=== PATIENT | female | born 1985 | race Two or more races ===

== ENCOUNTER 2023-04-06 19:52 | Emergency (ER) | payer OTHER ==
[~2023-04-06] VITALS: Ht 162.6 cm; Wt 84.1 kg
[2023-04-06 20:29] VITALS: BP 135/87
[2023-04-06 21:15] LABS: Basophils # (auto) 0.2 10 ^3/uL (0-0.2); Basophils % (auto) 1.4 % (0.0-2.0); Eosinophils # (auto) 0.1 10 ^3/uL (0-0.8); Hematocrit 44.2 % (36.0-46.0); Hemoglobin 15.1 g/dL (12.2-16.2); Lymphocytes # (auto) 2.5 10 ^3/uL (0.4-5.4); Lymphocytes % (auto) 19.4 % (10.0-50.0); Mean Corpuscular Hemoglobin 29.3 pg (28.0-32.0); Mean Corpuscular Hgb Conc. 34.1 g/dL (32.0-36.0); Mean Corpuscular Volume 85.8 fL (80.0-100.0); Monocytes % (auto) 7.3 % (0.0-12.0); Neutrophils # (auto) 9.3 10 ^3/uL (1.6-8.6); Neutrophils % (auto) 70.9 % (37.0-80.0); Red Blood Cells 5.15 10^6/uL (4.0-5.20); Red Cell Distribution Width 13.9 % (11.8-14.3); White Blood Cell 13.1 10^3/uL (4.4-10.8)
[2023-04-06 21:27] LABS: Albumin 3.6 g/dL (3.4-5.0); Calcium 8.7 mg/dL (8.5-10.1); Potassium 3.6 mmol/L (3.5-5.1)
[2023-04-06 21:32] LABS: BUN/Creatinine Ratio 15.2 (10.0-20.0); Bilirubin, Total 0.4 mg/dL (0.2-1.0); Total Protein 7.7 g/dL (6.4-8.2)
[2023-04-06 22:22] LABS: INR 1.01 (0.9-1.15); Partial Thromboplastin Time 28.9 SEC (24.5-34.5)
== END 2023-04-07 03:12 | disposition home or self-care (01) ==
LOC: ER 19:52
DX: O46.8X1 Other antepartum hemorrhage, first trimester (principal); O26.891 Other specified pregnancy related conditions, first trimester; R10.2 Pelvic and perineal pain; Z3A.01 Less than 8 weeks gestation of pregnancy
CPT/HCPCS: 36415; 76801; 80053; 84702; 85025; 85610; 85730; 86901

== ENCOUNTER 2024-02-03 09:08 | Emergency (ER) | payer OTHER ==
[~2024-02-03] VITALS: Ht 162.6 cm; Wt 94.5 kg
[~2024-02-03 09:08] MED LIST: ZOFR4T PO
[2024-02-03 10:32] LABS: Urine Bacteria FEW /hpf (None Seen); Urine Blood 2+ /uL (Negative); Urine Clarity Turbid (Clear); Urine Color Light-Yellow (Yellow); Urine Mucus FEW (None Seen); Urine Protein, UAD Negative (Negative); Urine Urobilinogen Normal (Negative); Urine WBC 3 /hpf (0 - 5); Urine pH 5.5 (5.0-9.0)
[2024-02-03] MEDS ORDERED: CEPH250C PO (11:32)
[2024-02-03 11:40] VITALS: BP 124/74; PULSE 78; RESP 16; TEMP 98; O2SAT 100
== END 2024-02-03 11:39 | disposition home or self-care (01) ==
LOC: ER 09:08
DX: O23.41 Unspecified infection of urinary tract in pregnancy, first trimester (principal); R10.2 Pelvic and perineal pain; N39.0 Urinary tract infection, site not specified; O16.1 Unspecified maternal hypertension, first trimester; Z79.899 Other long term (current) drug therapy; Z3A.10 10 weeks gestation of pregnancy
CPT/HCPCS: 36415; 76801; 76817; 81001; 84702

== ENCOUNTER 2024-02-09 09:44 | Emergency (ER) | payer OTHER ==
[~2024-02-09] VITALS: Ht 162.6 cm; Wt 95.7 kg
[~2024-02-09 09:44] MED LIST changes: +CEPH250C PO
[2024-02-09 10:34] VITALS: BP 132/72; PULSE 88; RESP 18; O2SAT 98
[2024-02-09 10:37] LABS: Urine Bacteria None Seen /hpf (None Seen)
[2024-02-09 11:12] LABS: Basophils # (auto) 0 10 ^3/uL (0-0.2); Basophils % (auto) 0.5 % (0.0-2.0); Eosinophils # (auto) 0.1 10 ^3/uL (0-0.8); Hematocrit 43.3 % (36.0-46.0); Hemoglobin 14.7 g/dL (12.2-16.2); Lymphocytes % (auto) 19.7 % (10.0-50.0); Mean Corpuscular Hemoglobin 29.4 pg (28.0-32.0); Mean Corpuscular Hgb Conc. 33.9 g/dL (32.0-36.0); Mean Corpuscular Volume 86.7 fL (80.0-100.0); Monocytes # (auto) 0.6 10 ^3/uL (0-1.3); Monocytes % (auto) 5.4 % (0.0-12.0); Neutrophils # (auto) 7.6 10 ^3/uL (1.6-8.6); Neutrophils % (auto) 73.4 % (37.0-80.0); Nucleated Red Blood Cells % 0.1 %; Red Cell Distribution Width 13.9 % (11.8-14.3); White Blood Cell 10.3 10^3/uL (4.4-10.8)
[2024-02-09 12:40] LABS: Urine Blood 3+ /uL (Negative); Urine Clarity Ex.Turbid (Clear); Urine Color Light-Red (Yellow); Urine Protein, UAD 1+ (Negative); Urine Specific Gravity 1.027 (1.001-1.035); Urine Urobilinogen Normal (Negative); Urine WBC 270 /hpf (0 - 5); Urine WBC Clumps PRESENT /hpf (None Seen); Urine pH 5.5 (5.0-9.0)
== END 2024-02-09 13:07 | disposition home or self-care (01) ==
LOC: ER 09:44
DX: O03.4 Incomplete spontaneous abortion without complication (principal); R10.2 Pelvic and perineal pain; Z3A.11 11 weeks gestation of pregnancy
CPT/HCPCS: 36415; 76801; 76817; 81001; 84702; 85025; 86850; 86900; 86901

== ENCOUNTER 2024-03-20 14:31 | Emergency (ER) | payer OTHER ==
[~2024-03-20] VITALS: Ht 162.6 cm; Wt 96.1 kg
[2024-03-20] MEDS ORDERED: IBUP-1455 PO (16:00)
[2024-03-20 16:46] VITALS: BP 139/88; PULSE 88; RESP 18; TEMP 98.9; O2SAT 98
== END 2024-03-20 16:49 | disposition home or self-care (01) ==
LOC: ER 14:31
DX: S93.401A Sprain of unspecified ligament of right ankle, initial encounter (principal); I10 Essential (primary) hypertension; X50.1XXA Overexertion from prolonged static or awkward postures, initial encounter; Y93.89 Activity, other specified; Y92.89 Other specified places as the place of occurrence of the external cause; Y99.8 Other external cause status
CPT/HCPCS: 73610

== ENCOUNTER 2024-05-25 18:46 | Emergency (ER) | payer OTHER ==
[~2024-05-25] VITALS: Ht 162.6 cm; Wt 95.0 kg
[~2024-05-25 18:46] MED LIST changes: +IBUP-1455 PO
[2024-05-25 19:26] LABS: Basophils # (auto) 0.1 10 ^3/uL (0-0.2); Basophils % (auto) 0.7 % (0.0-2.0); Eosinophils # (auto) 0.1 10 ^3/uL (0-0.8); Eosinophils % (auto) 0.8 % (0.0-7.0); Hematocrit 45.1 % (36.0-46.0); Hemoglobin 15.5 g/dL (12.2-16.2); Lymphocytes # (auto) 2.8 10 ^3/uL (0.4-5.4); Lymphocytes % (auto) 23.8 % (10.0-50.0); Mean Corpuscular Hemoglobin 29.4 pg (28.0-32.0); Mean Corpuscular Hgb Conc. 34.4 g/dL (32.0-36.0); Mean Corpuscular Volume 85.6 fL (80.0-100.0); Monocytes # (auto) 0.6 10 ^3/uL (0-1.3); Monocytes % (auto) 5.2 % (0.0-12.0); Neutrophils # (auto) 8.1 10 ^3/uL (1.6-8.6); Neutrophils % (auto) 69.5 % (37.0-80.0); Nucleated Red Blood Cells % 0.1 %; Red Blood Cells 5.27 10^6/uL (4.0-5.20); Red Cell Distribution Width 13.5 % (11.8-14.3); White Blood Cell 11.6 10^3/uL (4.4-10.8)
[2024-05-25 19:33] LABS: Urine Bacteria FEW /hpf (None Seen); Urine Blood 1+ /uL (Negative); Urine Clarity Clear (Clear); Urine Color Colorless (Yellow); Urine Protein, UAD Negative (Negative); Urine Specific Gravity 1.012 (1.001-1.035); Urine Urobilinogen Normal (Negative); Urine WBC 5 /hpf (0 - 5); Urine pH 6.5 (5.0-9.0)
[2024-05-25 19:48] LABS: Alanine Aminotransferase 29 U/L (7-40); Albumin 4.5 g/dL (3.2-4.8); Alkaline Phosphatase 68 U/L (46-116); Anion Gap 8 (5-15); Aspartate Aminotransferase 14 U/L (13-40); BUN/Creatinine Ratio 10.3 (10.0-20.0); Bilirubin, Total 0.3 mg/dL (0.2-1.0); Blood Urea Nitrogen 9 mg/dL (9-23); Calcium 9.7 mg/dL (8.7-10.4); Carbon Dioxide 26 mmol/L (20-30); Chloride 107 mmol/L (98-107); Glucose 96 mg/dL (74-106); Magnesium 1.9 mg/dL (1.6-2.6); Sodium 141 mmol/L (136-145); Total Protein 7.3 g/dL (5.7-8.2)
[2024-05-25] MEDS ORDERED: CIPR-173 PO (19:55)
[2024-05-25] MEDS: ASPirin 81 mg TAB PO ONE (21:29)
[2024-05-25 21:30] VITALS: BP 143/96; PULSE 87; RESP 14; TEMP 99.1; O2SAT 98
== END 2024-05-25 21:36 | disposition home or self-care (01) ==
LOC: ER 18:46
DX: R07.89 Other chest pain (principal); N39.0 Urinary tract infection, site not specified; R51.9 Headache, unspecified; I10 Essential (primary) hypertension; D72.829 Elevated white blood cell count, unspecified; Z90.49 Acquired absence of other specified parts of digestive tract
CPT/HCPCS: 36415; 71045; 80053; 81001; 83735; 83880; 84484; 85025; 85379; 93005

== ENCOUNTER 2025-04-07 11:17 | Emergency (ER) | payer OTHER ==
[~2025-04-07] VITALS: Ht 162.6 cm; Wt 82.0 kg
[~2025-04-07 11:17] MED LIST changes: +CIPR-173 PO
[2025-04-07] MEDS ORDERED: IBU600T PO (11:48)
[2025-04-07] MEDS ORDERED: AMOX500T3 PO (11:48)
--- NOTE | 2025-04-07 11:48 | ED.PDOC ---
History of Present Illness HPI Comments 40-year-old female brought by paramedics because sliding door fell on right toe causing severe pain. She had initial bleeding which stopped prior to coming to the ER. She denies taking aspirin. She denies loss of consciousness. She denies any other symptoms. Chief Complaint: Lower Extremity Time Seen by MD: 11:25 Primary Care Provider: UNKNOWN Reviewed Notes: Nurses Notes, Medications, Allergies Allergies: Coded Allergies: NO KNOWN ALLERGIES (Unverified , 04/06/23) Home Meds Active Scripts Ibuprofen Micronized (MOTRIN TABLET) 600 Mg Tb, 600 MG PO TID PRN for 5 Days, #15 TAB *Black box warning-NSAIDS can increase risk of CA & hypertension, GI irritation, ulceration, bleed, perferation. Do not use post cardiac surgery. Use short duration/lowest effective dose. Prov:NICHOLAS BARNES MD 04/07/25 Amoxicillin Trihydrate (Amoxicillin) 500 Mg Tab, 1 TAB PO TID for 5 Days, #15 TAB Prov:NICHOLAS BARNES MD 04/07/25 Ciprofloxacin Hcl (Cipro) 500 Mg Tab, 1 TAB PO BID, #14 TAB Prov:BRYANNA CLARK MD 05/25/24 Ibuprofen Micronized (Ibuprofen) 800 Mg Tab, 800 MG PO Q8HP PRN, #20 TAB Prov:SANTOSH RODNEY PAC 03/20/24 Cephalexin (KEFLEX CAPSULE) 250 Mg Cp, 250 MG PO QID for 5 Days, #20 BOTTLE Prov:NICHOLAS BARNES MD 02/03/24 Ondansetron Odt 4MG Tab (ZOFRAN PO) 4 Mg Tb, 1 TAB PO Q8HPRN PRN, #8 TAB as needed for nausea vomitingf ODT TAB-DISSOLVE IN MOUTH, THEN SWALLOW Prov:HARDY BELL [employer]ILDER 01/22/24 Information Source: Patient, Emergency Med Personnel Mode of Arrival: EMS Severity: Moderate Timing: Minutes Duration: Since onset Past Medical History PAST MEDICAL HISTORY: HTN Surgical History: Cholecystectomy STATE EDITOR History: Denies all STATE EDITOR Hx Family History Family History: No family hx of Cancer, No family hx of DM, No family hx of Heart marge Social History Smoker: Non-Smoker Alcohol: Denies ETOH Use Drugs: Denies Drug Use Lives In: Home Constitutional: denies: chills, diaphoresis, fatigue, fever, malaise, sweats, weakness, others EENTM: denies: blurred vision, double vision, ear bleeding, ear discharge, ear drainage, ear pain, ear ringing, eye pain, eye redness, hearing loss, mouth pain, mouth swelling, nasal discharge, nose bleeding, nose congestion, nose pain, photophobia, tearing, throat pain, throat swelling, voice changes, others Respiratory: denies: cough, hemoptysis, orthopnea, SOB at rest, shortness of b reath, SOB with excertion, stridor, wheezing, others Cardiovascular: denies: chest pain, dizzy spells, diaphoresis, Dyspnea on exertion, edema, irregular heart beat, left arm pain, lightheadedness, palpitations, PND, syncope, others Gastrointestinal: denies: abdomen distended, abdominal pain, blood streaked bowels, constipated, diarrhea, dysphagia, difficulty swallowing, hematemesis, melena, nausea, poor appetite, poor fluid intake, rectal bleeding, rectal pain, vomiting, others Genitourinary: denies: abnormal vagina bleeding, burning, dyspareunia, dysuria, flank pain, frequency, hematuria, incontinence, pain, , vagina discharge, urgency, others Neurological: denies: dizziness, fainting, headache, left sided numbness, left sided weakness, numbness, paresthesia, pre-existing deficit, right sided numbness, right sided weakness, seizure, speech problems, tingling, tremors, weakness, others Musculoskeletal: reports: joint pain (Right toe); denies: back pain, gout, joint swelling, muscle pain, muscle stiffness, neck pain, others Integumetry: denies: bruises, change in color, change in hair/nails, dryness, l aceration, lesions, lumps, rash, wounds, others Allergic/Immunocompromised: denies: Difficulty Healing, Frequent Infections, Hives, Itching, others Hematologic/Lymphatic: denies: anemia, blood clots, easy bleeding, easy bruising, swollen glands, others Endocrine: denies: excessive hunger, excessive sweating, excessive thirst, excessive urination, flushing, intolerance to cold, intolerance to heat, unexplained weight gain, unexplained weight loss, others Psychiatric: denies: anxiety, bipolar disorder, depression, hopeless, panic disorder, schizophrenia, sleepless, suicidal, others Physical Exam General Appearance: Moderate Distress HEENT: Normal ENT Inspection, Pharynx Normal, TMs Normal Neck: Full Range of Motion, Non-Tender, Normal, Normal Inspection Respiratory: Chest Non-Tender, Lungs Clear, No Accessory Muscle Use, No Re spiratory Distress, Normal Breath Sounds Cardiovascular: No Edema, No JVD, No Murmur, No Gallop, Normal Peripheral Pulses, Regular Rate/Rhythm Breast Exam: Deferred Gastrointestinal: No Organomegaly, Non Tender, No Pulsatile Mass, Normal Bowel Sounds, Soft Genitalia: Deferred Pelvic: Deferred Rectal: Deferred Extremities: No calf tenderness, Normal capillary refill, Normal inspection, Normal range of motion, Non-tender, No pedal edema Musculoskeletal : Apperance: Normal 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 Was a procedure done?: Yes Sedation Sedation?: No Laceration Repair : Location Right toe Length 3 cm Anesthetic: Lidocaine Laceration Repair Prep: Saline, Betadine Laceration Repair Wound Comple: epidermis/dermis repair Laceration Repair: Number of sutures (4), Skin, Prolene, Simple Differential Dx Considerations may include: Musculoskeletal pain Muscle strain X-Ray, Labs, Meds, VS Vital Signs Date Time Temp Pulse Resp B/P (MAP) Pulse Ox O2 Delivery O2 Flow Rate FiO2 04/07/25 15:20 97.9 80 18 137/81 (99) 99 97.9 04/07/25 15:20 80 18 99 Room Air 04/07/25 11:24 98.2 93 18 145/94 (111) 97 98.2 Patient alert. Status post trauma to the right foot. Vitals stable. Answering questions. Skin abrasion of the right toe. Was given prescription of Motrin amoxicillin antibiotic. Was told to follow up with her primary care physician. Was told to come back if there is any problem. Time of 1ST Reevaluation: 11:46 Reevaluation 1ST: Unchanged Patient Education/Counseling: Diagnosis, Treatment, Prognosis, Need For Follow Up Family Education/Counseling: No Family Present SEPSIS Sepsis Screen Date sepsis recognized/suspect: Apr 07, 2025 Time Sepsis recognized/suspect: 1120 Recent Procedure: No On Antibiotic Therapy: No Respiratory Rate >20: No Heart Rate >90: Yes Temp<36 C (96.8 F) or >38.3 C: No SBP <90 or MAP <65 mmHG: No New Acute Mental Status Change: No Is the patient on CPAP, BIPAP,: No Physician Orders R Foot 2 View Xray (04/07/25 11:41) Vital Signs Date Time Temp Pulse Resp B/P (MAP) Pulse Ox O2 Delivery O2 Flow Rate FiO2 04/07/25 15:20 97.9 80 18 137/81 (99) 99 97.9 04/07/25 15:20 80 18 99 Room Air 04/07/25 11:24 98.2 93 18 145/94 (111) 97 98.2 Departure 1 Departure Time of Disposition: 11:47 Impression: Primary Impression: Toe injury Qualified Codes: S99.921A - Unspecified injury of right foot, initial encounter Disposition: 01 HOME / SELF CARE / HOMELESS Condition: Good e-Prescriptions Ibuprofen Micronized (MOTRIN TABLET) 600 Mg Tb 600 MG PO TID PRN for 5 Days, #15 TAB *Black box warning-NSAIDS can increase risk of CA & hypertension, GI irritation, ulceration, bleed, perferation. Do not use post cardiac surgery. Use short duration/lowest effective dose. Prov: NICHOLAS BARNES MD 04/07/25 Amoxicillin Trihydrate (Amoxicillin) 500 Mg Tab 1 TAB PO TID for 5 Days, #15 TAB Prov: NICHOLAS BARNES MD 04/07/25 Discharged With: Self Critical Care Note Critical Care Time?: No Stability Stability form required: No Heart Score Heart Score: Heart Score Response (Comments) Value History N/A 0 EKG N/A 0 Age N/A 0 Risk Factors N/A 0 Troponin N/A 0 Total 0 NICHOLAS BARNES MD Apr 07, 2025 11:48
--- NOTE | 2025-04-07 12:14 | DVH ---
EXAM: XY R FOOT 2 VIEW XRAY CLINICAL INDICATION: trauma TECHNIQUE: XY R FOOT 2 VIEW XRAY Comparison: None FINDINGS/IMPRESSION: There is no evidence of acute fracture or dislocation. The visualized joint space is well maintained. The alignment is anatomical. There is no radiopaque foreign body.
[2025-04-07 15:20] VITALS: BP 137/81; PULSE 80; RESP 18; TEMP 97.9; O2SAT 99
[2025-04-07] MEDS: LIDOCAINE HCL 1 % PF INJ 2ML AMP IJ ONE (15:51)
[2025-04-07] MEDS: LIDOCAINE 1% HCL (LOCAL ANESTH.) INJ 20ML MDV ONE (15:51)
[2025-04-07] MEDS: LIDOCAINE 1% HCL (LOCAL ANESTH.) INJ 20ML MDV ID ONE (16:05)
== END 2025-04-07 16:13 | disposition home or self-care (01) ==
LOC: ER 11:17 → EDBD 11:17 → ER 16:13
DX: S91.111A Laceration without foreign body of right great toe without damage to nail, initial encounter (principal); I10 Essential (primary) hypertension; Z90.49 Acquired absence of other specified parts of digestive tract; Z79.899 Other long term (current) drug therapy; W22.8XXA Striking against or struck by other objects, initial encounter; Y93.89 Activity, other specified; Y92.89 Other specified places as the place of occurrence of the external cause; Y99.8 Other external cause status
CPT/HCPCS: 12002; 73620; 99283; J2003